=== PATIENT | female | born 1995 | race Caucasian/White ===

== ENCOUNTER 2018-03-20 15:09 | Emergency (ER) | payer OTHER ==
[~2018-03-20] VITALS: Ht 177.8 cm; Wt 79.8 kg
[2018-03-20 15:25] VITALS: BP 135/73
--- NOTE | 2018-03-20 15:30 | NUR ---
22 Y/O F W/C/O CHEST PAIN SINCE THIS MORNING. PT STATES, "IT FEELS LIKE SOMETHING IS SITTING ON MY CHEST." PT STATES LIGHT HEADEDNESS, N/V. PT WAS SEEN HERE YESTERADY FOR STOMACH PAIN AND WAS GIVEN [facility] RX. PT ALSO STATES SHE HAS A HEADACHE AND SORENESS ON NECK AND UPPER BACK. 9/10 PAIN AT THIS TIME. SKIN IS INTACT, PINK/WARM/DRY; AAOX4, PERRL, WITH EVEN AND STEADY GAIT; LUNGS CLEAR BL, BREATHING UNLABORED; HR EVEN AND REGULAR, BL PERIPHERAL PULSES PRESENT; BS ACTIVE X4, NO TENDERNESS TO PALPATION, NO HEPATOSPLENOMEGALLY PALPATED, RESONANT TO PERCUSSION; PT DENIES ANY FEVER, CP, SOB, OR COUGH AT THIS TIME; PT STATES 9/10 PAIN AT THIS TIME; VSS; PATIENT POSITIONED FOR COMFORT; HOB ELEVATED; BEDRAILS UP X2; BED DOWN. PMH:[facility] RX: FLOVENT, CLARITIN ALLERGIES: ERYTHROMYCIN
[2018-03-20] MEDS ORDERED: DICYCLOMINE HCL LIQUID 10 MG/5 ML UDC PO ONE (16:15)
[2018-03-20] MEDS ORDERED: LIDOCAINE VISCOUS 2% 20 ML UDC PO ONE (16:15)
[2018-03-20] MEDS ORDERED: ALUMINUM HYD/MAG/SIMETHICONE 30 ML UDC PO ONE (16:15)
[2018-03-20 17:25] VITALS: BP 135/73
--- NOTE | 2018-03-20 17:27 | NUR ---
Patient discharged with v/s stable. Written and verbal after care instructions given and explained. Patient alert, oriented and verbalized understanding of instructions. Ambulatory with steady gait. All questions addressed prior to discharge. ID band removed. Patient advised to follow up with PMD. Rx of OMEPRAZOLE given. Patient educated on indication of medication including possible reaction and side effects. Opportunity to ask questions provided and answered.
== END 2018-03-20 17:24 | disposition home or self-care (01) ==
LOC: MED 15:09
DX: K21.9 Gastro-esophageal reflux disease without esophagitis (principal); J45.909 Unspecified asthma, uncomplicated; Z88.1 Allergy status to other antibiotic agents
CPT/HCPCS: 71045; 93005; 99284

== ENCOUNTER 2018-06-28 01:49 | Emergency (ER) | payer OTHER ==
[~2018-06-28] VITALS: Ht 180.3 cm; Wt 95.3 kg
[2018-06-28 01:54] VITALS: BP 137/72
--- NOTE | 2018-06-28 02:05 | NUR ---
PT PRESENTS TO ER WITH US X 2WEEKS. PATIENT STATES THROBING 10/10 PAIN THAT RADIATES DOWN NECK AND SHOULDERS. PT HAS TAKEN EXCEDREN WITH NO RELIEF. PT STATES NAUSUA AND DIZZINESS. PT DENIES BLURRED VISSION AND FEVER. A&OX4 AND PERDEN. MD NOTIFIED OF PT CONDITION. SIDE RAILS UP, BED IN LOWEST POSITION. CONTINUE TO MONITOR
--- NOTE | 2018-06-28 02:05 | NUR ---
PT TAKEN TO BED 11
[2018-06-28] MEDS ORDERED: KETOROLAC 30 MG/ML VIAL IM ONE (02:25)
--- NOTE | 2018-06-28 02:32 | NUR ---
PT TAKEN TO CT
--- NOTE | 2018-06-28 02:32 | NUR ---
Adonay camacho in [facility] - 06/28/18 at 0233 by SIMRAN PT TAKEN TO BED 11
--- NOTE | 2018-06-28 02:48 | NUR ---
EKG PERFORMED AT BEDSIDE WITH FAMILY MEMBER PRESENT. PT COVERED IN GOWN AND BLANKET DURING PROCEDURE
[2018-06-28 03:06] LABS: ANION GAP 10.2 (8-16); CARBON DIOXIDE 27.9 mmol/L (21-32); CREATININE 0.9 mg/dL (0.6-1.3); POTASSIUM 4.1 mmol/L (3.5-5.1)
--- NOTE | 2018-06-28 03:21 | NUR ---
PT RESTING IN BED WITH EYES OPEN. VSS. FRIEND IS BY HER SIDE. SIDE RAILS UP, BED IN LOWEST POSITION. CONTINUE TO MONITOR
[2018-06-28 03:59] VITALS: BP 122/56
--- NOTE | 2018-06-28 03:59 | NUR ---
Patient discharged with v/s stable. Written and verbal after care instructions given and explained. Patient alert, oriented and verbalized understanding of instructions. Ambulatory with steady gait. All questions addressed prior to discharge. ID band removed. Patient advised to follow up with PMD. Rx of FIORICET given. Patient educated on indication of medication including possible reaction and side effects. Opportunity to ask questions provided and answered.
== END 2018-06-28 03:59 | disposition home or self-care (01) ==
LOC: MED 01:49
DX: R51 Headache (principal); R42 Dizziness and giddiness; R11.10 Vomiting, unspecified; Z88.1 Allergy status to other antibiotic agents; J45.909 Unspecified asthma, uncomplicated
CPT/HCPCS: 36415; 70450; 80048; 81002; 81025; 93005; 96372; 99284; J1885

== ENCOUNTER 2018-07-03 10:14 | Emergency (ER) | payer OTHER ==
[~2018-07-03] VITALS: Ht 177.8 cm; Wt 95.4 kg
[2018-07-03 10:18] VITALS: BP 122/72
[2018-07-03 11:00] VITALS: BP 125/78
== END 2018-07-03 11:13 | disposition home or self-care (01) ==
LOC: MED 10:14
DX: R11.2 Nausea with vomiting, unspecified (principal); R19.7 Diarrhea, unspecified; J45.909 Unspecified asthma, uncomplicated; Z88.1 Allergy status to other antibiotic agents
CPT/HCPCS: 81002; 81025; 99283